=== PATIENT | male | born 1955 | race Caucasian/White ===

== ENCOUNTER 2021-02-26 00:24 | Day surgery (SDC) | payer BC, SELFPAY ==
[2021-02-13 14:08] VITALS: BMI 23.4
[2021-02-26 09:58] VITALS: BP 143/90; PULSE 83; RESP 16; TEMP 35.7; O2SAT 100; BMI 22.8
[2021-02-26] MEDS: LACTATED RINGERS 1,000 ML 150 ML IV CONT (10:11)
--- NOTE | 2021-02-26 10:12 | WPDANESEPPF ---
Anes - Initial Pre Proc Eval Procedure: Operation Date: 02/26/21 12:30 Proposed Procedures p Screening Colonoscopy - Finn Werner MD Date/Time: 02/26/21 10:12 Surgeon: Finn Werner MD Pre Op Diagnosis: neoplasm screening Patient Data Age: 65 Gender: M Height: 1.73 m Weight: 68.1 kg Last Vital Signs Temp 35.7 C L 02/26/21 09:58 Pulse 83 02/26/21 09:58 Resp 16 02/26/21 09:58 BP 143/90 H 02/26/21 09:58 Pulse Ox 100 02/26/21 09:58 Allergies Allergy/AdvReac Type Severity Reaction Status Date / Time No Known Allergies Allergy Verified 02/26/21 09:57 Home Medications Medication Instructions Recorded Confirmed Type One-A-Day Men's Multivitamin 1 tablet PO DAILY 02/13/21 02/26/21 History amlodipine 5 mg PO BID 02/13/21 02/26/21 History meloxicam 15 mg PO PRN PRN 02/13/21 02/26/21 History simvastatin 40 mg PO DAILY 02/13/21 02/26/21 History triamcinolone acetonide 1 applic TOPICAL PRN PRN 02/13/21 02/26/21 History Patient hx anesthesia problems: none Family hx anesthesia problems: none Results Review: All pre-operative results and documents have been reviewed as part of the pre-operative evaluation. [facility] Past Medical History Medical History (Updated 02/26/21 @ 10:12 by Brett Dozier MD) HTN (hypertension) Hyperlipidemia Surgical History Surgical History H/O arthroscopic knee surgery Social History Social History Smoking status: Never smoker Alcohol intake: current Drinks per week: 6 Substance use type: does not use Living arrangements: with family Spiritual care concerns: No Anes - Eval Final PreProcedure Day of Procedure 02/26/21 10:12 Patient weight: normal Heart: regular rate and rhythm Lungs: clear to auscultation Airway: Mallampati scale class II Neurological: alert and oriented Last oral intake: >/= 8 hours ASA classification: II Emergent: no Anesthetic plan: proceed Anesthesia type and monitoring: general GIVS and standard monitoring Results Review: All pre-operative results and documents have been reviewed as part of the pre-operative evaluation. Informed Consent: The patient's anesthetic plan and its attendant risks and benefits were discussed with the patient/family/POA. Questions were solicited and answers provided to the satisfaction of the patient/family/POA.
--- NOTE | 2021-02-26 10:19 | PM.HPGS ---
History of Present Illness History of Present Illness Consent: Risks, benefits, and alternatives have been discussed and questions answered. Patient agrees to proceed with procedure. Chief complaint: neoplasm screening Narrative: Ramiro Martell is a 65 year old male with colon polyp 3 years ago. Review of Systems Constitutional: Constitutional: Denies headache(s) and Denies weakness Eyes: Eyes: Denies blurry vision ENT: Reports Normal hearing present, Denies headache(s) and Denies neck pain Cardiovascular: Cardiovascular: Denies chest pain and Denies dyspnea Respiratory: Respiratory: Denies dyspnea Gastrointestinal: Gastrointestinal: Reports no additional gastrointestinal complaints Genitourinary: Genitourinary: Denies dysuria Musculoskeletal: Musculoskeletal: Denies neck pain Integumentary/Breasts: Skin/Breast: Denies dry skin Neurologic: Reports Normal hearing present, Denies headache(s) and Denies weakness Psychiatric: Psychiatric: Denies anxiety Endocrine: Endocrine: Denies change in body appearance Hematologic/Lymphatic: Hematologic/Lymphatic: Denies easy bleeding Allergic/Immunologic: Allergic/Immunologic: Denies urticaria PMF Past Medical History Medical History (Updated 02/26/21 @ 10:19 by Finn Werner MD) Colon polyp HTN (hypertension) Hyperlipidemia Surgical History Surgical History H/O arthroscopic knee surgery Social History Social History Smoking status: Never smoker Alcohol intake: current Drinks per week: 6 Substance use type: does not use Living arrangements: with family Spiritual care concerns: No Meds Home Medications and Allergies Home Medications Medication Instructions Recorded Confirmed Type One-A-Day Men's Multivitamin 1 tablet PO DAILY 02/13/21 02/26/21 History amlodipine 5 mg PO BID 02/13/21 02/26/21 History meloxicam 15 mg PO PRN PRN 02/13/21 02/26/21 History simvastatin 40 mg PO DAILY 02/13/21 02/26/21 History triamcinolone acetonide 1 applic TOPICAL PRN PRN 02/13/21 02/26/21 History Allergies Allergy/AdvReac Type Severity Reaction Status Date / Time No Known Allergies Allergy Verified 02/26/21 09:57 Vital Signs Vital Signs - 24 hr 11/23/21 09:58 Temperature 96.3 F L Pulse Rate 83 Respiratory Rate 16 Blood Pressure 143/90 H Pulse Oximetry 100 Exam Const: General: comfortable and no acute distress HENMT: General nose exam: Normal nares present Eyes: General: appearance normal, both eyes and all related structures Neck: Neck: no JVD Resp: Auscultation: clear to auscultation bilaterally Cardio: Rate: regular rate Rhythm: regular rhythm GI: Inspection: non-distended GI Palp: Yes Soft to palpation Skin: General skin exam: normal color Neuro: General: gait normal Speech: normal speech Extrem: General: normal to inspection Psych: Mental Status: mental status grossly normal Assessment and Plan Assessment and plan (1) Colon polyp: Code(s): K63.5 - Polyp of colon Status: Acute Assessment and Plan: colonoscopy
[2021-02-26 10:39] VITALS: BP 113/78; PULSE 82; RESP 15; O2SAT 97
[2021-02-26 10:49] VITALS: BP 121/89; PULSE 69; RESP 16; O2SAT 99
== END 2021-02-26 11:09 | disposition home or self-care (01) ==
PROVIDERS: PCP Student in an Organized Health Care Education/Training Program; Visit Provider Internal Medicine Gastroenterology
PROC: 0DJD8ZZ Inspection of Lower Intestinal Tract, Via Natural or Artificial Opening Endoscopic (ICD-10-PCS; CPT 45378; principal; 2021-02-26 12:30)
DX: Z12.11 Encounter for screening for malignant neoplasm of colon (principal); K57.30 Diverticulosis of large intestine without perforation or abscess without bleeding; K64.8 Other hemorrhoids; Z86.010 Personal history of colon polyps; I10 Essential (primary) hypertension; E78.5 Hyperlipidemia, unspecified
CPT/HCPCS: 45378; J2704; J7120

== ENCOUNTER 2023-05-21 08:12 | Day surgery (SDC) | payer MEDICARE, SELFPAY ==
[2023-05-05 14:20] VITALS: BMI 25.1
[2023-05-21 09:20] VITALS: BP 147/94; PULSE 76; RESP 20; TEMP 36.7; O2SAT 99
[2023-05-21] MEDS: LACTATED RINGERS 1,000 ML 150 ML IV CONT (09:44)
--- NOTE | 2023-05-21 09:49 | WPDANESEPPF ---
Anes - Initial Pre Proc Eval Procedure: Operation Date: 05/21/23 10:30 Proposed Procedures p Esophagogastroduodenoscopy - Juan Rocha MD Date/Time: 05/21/23 09:49 Surgeon: Juan Rocha MD Pre Op Diagnosis: GERD w/o esophagitis, epigastric pain, Patient Data Age: 67 Gender: M Height: 1.73 m Weight: 74.8 kg Last Vital Signs Temp 36.7 C 05/21/23 09:20 Pulse 76 05/21/23 09:20 Resp 20 05/21/23 09:20 BP 147/94 H 05/21/23 09:20 Pulse Ox 99 05/21/23 09:20 O2 Del Method Room Air 05/21/23 09:20 Allergies Allergy/AdvReac Type Severity Reaction Status Date / Time No Known Allergies Allergy Verified 05/21/23 09:24 Home Medications Medication Instructions Recorded Confirmed Type One-A-Day Men's Multivitamin 1 tablet PO DAILY 02/13/21 05/21/23 History amlodipine 5 mg tablet 5 mg PO DAILY 02/13/21 05/21/23 History meloxicam 15 mg tablet 15 mg PO PRN PRN Muscle Pain 02/13/21 05/21/23 History triamcinolone acetonide 0.1 % 1 applic topical PRN PRN Skin 02/13/21 05/21/23 History topical cream Irritation aspirin 81 mg tablet,delayed 81 mg PO DAILY 04/28/23 05/21/23 History release losartan 100 mg tablet 100 mg PO DAILY 04/28/23 05/21/23 History omeprazole 40 mg capsule,delayed 40 mg PO DAILY 04/28/23 05/21/23 History release Ocuvite Eye Plus Multi 2 tablet PO DAILY 05/05/23 05/21/23 History ascorbate calcium (vitamin C) 500 1,000 mg PO DAILY 05/05/23 05/21/23 History mg tablet atorvastatin 40 mg tablet 40 mg PO HS 05/05/23 05/21/23 History cholecalciferol (vitamin D3) 50 50 mcg PO DAILY 05/05/23 05/21/23 History mcg (2,000 unit) capsule (Vitamin D3) cranberry fruit concentrate 250 mg 250 mg PO DAILY 05/05/23 05/21/23 History chewable tablet (Azo Cranberry) hydroxyzine HCl 50 mg tablet 25 mg PO HS PRN Anxiety 05/05/23 05/21/23 History Patient hx anesthesia problems: none Family hx anesthesia problems: none Results Review: All pre-operative results and documents have been reviewed as part of the pre-operative evaluation. [facility] Past Medical History Medical History Colon polyp Epigastric pain Gastroesophageal reflux disease History of esophageal stricture HTN (hypertension) Hyperlipidemia Surgical History Surgical History H/O arthroscopic knee surgery Social History Social History Smoking status: Never smoker Alcohol intake: current Drinks per week: 8 Substance use: never Substance use type: does not use Living arrangements: with family Spiritual care concerns: No Anes - Eval Final PreProcedure Day of Procedure 05/21/23 09:49 Patient weight: normal Heart: regular rate and rhythm Lungs: clear to auscultation Airway: Mallampati scale class II Neurological: alert and oriented Last oral intake: >/= 8 hours ASA classification: III Emergent: no Anesthetic plan: proceed Anesthesia type and monitoring: general GIVS and standard monitoring Results Review: All pre-operative results and documents have been reviewed as part of the pre-operative evaluation. Informed Consent: The patient's anesthetic plan and its attendant risks and benefits were discussed with the patient/family/POA. Questions were solicited and answers provided to the satisfaction of the patient/family/POA.
--- NOTE | 2023-05-21 10:09 | PM.HPGS ---
History of Present Illness History of Present Illness Consent: Risks, benefits, and alternatives have been discussed and questions answered. Patient agrees to proceed with procedure. Chief complaint: GERD, epigastric pain, Narrative: Ramiro Martell is a 67 year old male presents for EGD. Has a history of epigastric pain. This has improved somewhat on starting omeprazole 40mg p.o. daily. Patient has a history of esophageal stricture dilated by Dr. Naidu in 2018. Patient denies any weight loss. Currently has no dysphagia symptoms. He has had no weight loss or bleeding. Family history noncontributory. Until the last 6 weeks he has not taken any acid suppressing medications recently. Review of Systems Review of Systems: Review of systems noncontributory. [facility] Past Medical History Medical History Colon polyp Epigastric pain Gastroesophageal reflux disease History of esophageal stricture HTN (hypertension) Hyperlipidemia Surgical History Surgical History H/O arthroscopic knee surgery Social History Social History Smoking status: Never smoker Alcohol intake: current Drinks per week: 8 Substance use: never Substance use type: does not use Living arrangements: with family Spiritual care concerns: No Meds Home Medications and Allergies Home Medications Medication Instructions Recorded Confirmed Type One-A-Day Men's Multivitamin 1 tablet PO DAILY 02/13/21 05/21/23 History amlodipine 5 mg tablet 5 mg PO DAILY 02/13/21 05/21/23 History meloxicam 15 mg tablet 15 mg PO PRN PRN Muscle Pain 02/13/21 05/21/23 History triamcinolone acetonide 0.1 % 1 applic topical PRN PRN Skin 02/13/21 05/21/23 History topical cream Irritation aspirin 81 mg tablet,delayed 81 mg PO DAILY 04/28/23 05/21/23 History release losartan 100 mg tablet 100 mg PO DAILY 04/28/23 05/21/23 History omeprazole 40 mg capsule,delayed 40 mg PO DAILY 04/28/23 05/21/23 History release Ocuvite Eye Plus Multi 2 tablet PO DAILY 05/05/23 05/21/23 History ascorbate calcium (vitamin C) 500 1,000 mg PO DAILY 05/05/23 05/21/23 History mg tablet atorvastatin 40 mg tablet 40 mg PO HS 05/05/23 05/21/23 History cholecalciferol (vitamin D3) 50 50 mcg PO DAILY 05/05/23 05/21/23 History mcg (2,000 unit) capsule (Vitamin D3) cranberry fruit concentrate 250 mg 250 mg PO DAILY 05/05/23 05/21/23 History chewable tablet (Azo Cranberry) hydroxyzine HCl 50 mg tablet 25 mg PO HS PRN Anxiety 05/05/23 05/21/23 History Allergies Allergy/AdvReac Type Severity Reaction Status Date / Time No Known Allergies Allergy Verified 05/21/23 09:24 Vital Signs Vital Signs - 24 hr 05/21/23 09:20 Temperature 98.1 F Pulse Rate 76 Respiratory Rate 20 Blood Pressure 147/94 H Pulse Oximetry 99 Oxygen Delivery Room Air Exam Narrative: Physical exam reveals patient to be alert. Vital signs stable. HEENT exam is unremarkable. Patient is anicteric. Lungs are clear to auscultation and to percussion. Heart is without murmur or extra sounds. Abdomen bowel sounds are present soft nontender with no organomegaly. Digital external rectal exam normal. Assessment and Plan Assessment and plan (1) Epigastric pain: Code(s): R10.13 - Epigastric pain Status: Acute Assessment and Plan: Patient with epigastric pain suspicious for underlying acid reflux. Plan to continue PPI further recommendations may be given after endoscopy. (2) Gastroesophageal reflux disease: Code(s): K21.9 - Gastro-esophageal reflux disease without esophagitis Status: Acute Assessment and Plan: Patient known to have acid reflux with history of stricture of the esophagus 5 years ago. Anticipate long-term use of acid suppression omeprazole currently 40mg p.o. daily dose of
[2023-05-21 10:31] VITALS: BP 124/78; PULSE 73; RESP 16; O2SAT 98
[2023-05-21 10:41] VITALS: BP 128/77; PULSE 69; RESP 16; O2SAT 99
--- NOTE | 2023-05-21 10:45 | WPDANESPN ---
Anes - Prog Note Post-Op Date/Time: 05/21/23 10:45 Cardiovascular status: normal Respiratory status: normal Airway patency: baseline Mental status: baseline Post-Op hydration status: normal Vital Signs: Last Vital Signs Temp 36.7 C 05/21/23 09:20 Pulse 73 05/21/23 10:31 Resp 16 05/21/23 10:31 BP 124/78 05/21/23 10:31 Pulse Ox 98 05/21/23 10:31 O2 Del Method Room Air 05/21/23 10:31 Pain Score (VAS): 0/10 I/O: Intake & Output 05/20/23 05/21/23 05/21/23 23:59 07:59 15:59 Intake Total 200 Balance 200 Patient Feedback: Patient satisfied with anesthetic care.
[2023-05-21 10:51] VITALS: BP 138/74; PULSE 60; RESP 16; O2SAT 99
== END 2023-05-21 11:02 | disposition home or self-care (01) ==
PROVIDERS: PCP Student in an Organized Health Care Education/Training Program; Visit Provider Internal Medicine Gastroenterology
PROC: 0DJ08ZZ Inspection of Upper Intestinal Tract, Via Natural or Artificial Opening Endoscopic (ICD-10-PCS; CPT 43235; principal; 2023-05-21 10:30)
DX: R10.13 Epigastric pain (principal); K21.9 Gastro-esophageal reflux disease without esophagitis
CPT/HCPCS: 43239